=== PATIENT | female | born 1945 | race Caucasian/White ===

== ENCOUNTER 2020-07-18 22:02 | Emergency (ER) | payer MEDICAID ==
[~2020-07-18] VITALS: Ht 144.8 cm; Wt 73.7 kg
--- NOTE | 2020-07-18 22:16 | NUR ---
at bedside, MSE in progress. Hossein at bedside.
--- NOTE | 2020-07-18 22:34 | NUR ---
CT at bedside
[2020-07-18 22:46] LABS: BASOPHILS % (AUTO) 0.4 % (0.0-2.0); EOSINOPHILS # (AUTO) 0.3 K/uL (0.0-0.7); EOSINOPHILS % (AUTO) 3.4 % (0.0-7.0); HEMATOCRIT 39.8 % (31.2-41.9); HEMOGLOBIN 13.5 g/dL (10.9-14.3); LYMPHOCYTES # (AUTO) 2.9 K/uL (20.0-40.0); LYMPHOCYTES % (AUTO) 33.5 % (20.5-51.5); MEAN CORPUSCULAR HEMOGLOBIN 29.2 uug (24.7-32.8); MEAN CORPUSCULAR HGB CONC 34 g/dL (32.3-35.6); MEAN CORPUSCULAR VOLUME 86.1 fL (75.5-95.3); MONOCYTES # (AUTO) 0.9 K/uL (2.0-10.0); MONOCYTES % (AUTO) 10.8 % (0.0-11.0); NEUTROPHILS # (AUTO) 4.6 K/uL (1.8-8.9); NEUTROPHILS % (AUTO) 51.9 % (38.5-71.5); PLATELET COUNT (AUTO) 284 K/uL (179-408); RED BLOOD CELL COUNT(AUTO) 4.62 MIL/uL (3.63-4.92); WHITE BLOOD COUNT (AUTO) 8.8 K/uL (3.8-11.8)
[2020-07-18 22:48] LABS: *BILIRUBIN,URIN NEGATIVE (NEGATIVE); *BLOOD, URINE 1+ (NEGATIVE); *CLARITY,URINE CLEAR (CLEAR); *COLOR,URINE YELLOW (YELLOW); *KETONES,URINE NEGATIVE (NEGATIVE); *UROBILINOGEN,URINE 0.2 E.U./dl (NORMAL); LEUKOCYTE ESTERASE ,URINE 2+ (NEGATIVE); NITRITE, URINE NEGATIVE (NEGATIVE); PH,URINE 5.5 (5.0-8.0); UGLUCOSE NEGATIVE (NEGATIVE)
[2020-07-18 22:56] LABS: BILIRUBIN,DIRECT 0.1 mg/dL (0.0-0.2); BILIRUBIN,TOTAL 0.5 mg/dL (0.2-1.0); CREATININE 0.6 mg/dL (0.6-1.3); POTASSIUM 4.2 mmol/L (3.5-5.1); TOTAL PROTEIN, SERUM 7.4 g/dL (6.4-8.2)
[2020-07-18 22:57] LABS: BACTERIA,URINE MODERATE /HPF (NONE SEEN); SQUAMOUS EPITHELIAL CELL,UR FEW /HPF (NONE SEEN); WBC,URINE 20-50 /HPF (0-3)
[2020-07-18] MEDS ORDERED: CEFTRIAXONE 1 G in IV DEXTROSE 5% 50 ML IV ONE (23:15)
[2020-07-18] MEDS ORDERED: CEPH500C2 PO (23:23)
[2020-07-18] MEDS: CEFTRIAXONE 1 G VIAL IM ONE (23:25)
[2020-07-18] MEDS ORDERED: CEFTRIAXONE 1 G VIAL ONE (23:27)
--- NOTE | 2020-07-19 00:04 | NUR ---
Patient discharged to home in stable condition. Written and verbal after care instructions given to patient and grandson at bedside. Patient and family verbalizes understanding of instructions. Stressed follow up or return to ER for worsening s/s. Steady gait.
[2020-07-19 00:05] VITALS: BP 127/70
== END 2020-07-19 00:02 | disposition home or self-care (01) ==
LOC: ER 22:04
DX: N30.90 Cystitis, unspecified without hematuria (principal); R10.31 Right lower quadrant pain; Z82.49 Family history of ischemic heart disease and other diseases of the circulatory system; E11.9 Type 2 diabetes mellitus without complications; E78.5 Hyperlipidemia, unspecified; Z95.5 Presence of coronary angioplasty implant and graft
CPT/HCPCS: 36415; 74176; 80048; 80076; 81001; 85025; 87077; 87086; 87186; 93005; 96365; 99285; J0696; J3490; A4663

== ENCOUNTER 2023-11-15 19:01 | Emergency (ER) | payer MEDICAID, MEDICARE ==
[~2023-11-15] VITALS: Ht 152.4 cm; Wt 90.7 kg
[~2023-11-15 19:01] MED LIST: CEPH500C2 PO
[2023-11-15] MEDS: ACETAMINOPHEN 500 MG TABLET PO ONE (21:31)
[2023-11-15 22:07] VITALS: BP 118/67; O2SAT 98
== END 2023-11-15 22:07 | disposition left against medical advice (07) ==
LOC: ER 19:02
DX: S63.592A Other specified sprain of left wrist, initial encounter (principal); E78.5 Hyperlipidemia, unspecified; Z98.890 Other specified postprocedural states; Z79.899 Other long term (current) drug therapy; W18.39XA Other fall on same level, initial encounter; Y93.89 Activity, other specified; Y92.89 Other specified places as the place of occurrence of the external cause; Y99.8 Other external cause status
CPT/HCPCS: 73110; 73130; A4606; A4663; A9150